=== PATIENT | male | born 1955 | race Two or more races ===

== ENCOUNTER 2019-12-17 16:12 | Emergency (ER) | payer MEDICARE ==
[2019-12-17 16:25] LABS: INTERNATIONAL RATION (INR) 0.93; PROTHROMBIN TIME 12.7 SEC (11.4-15.4)
[2019-12-17 16:26] LABS: PARTIAL THROMBOPLASTIN TIME 28.3 SEC (23.5-35.8)
--- NOTE | 2019-12-17 16:38 | ER Document Report ---
ED General - General Stated Complaint: POSSIBLE STROKE Time Seen by Provider: 12/17/19 16:17 Mode of Arrival: Medic Information source: Emergency Med Personnel Notes: 64-year-old male arrives by EMS with chief complaint of having gone fishing early this morning and upon returning to his home at 1130 his and son noticed he was very drowsy and not acting well and walking with a wide-based gait very drowsy. He went to sleep and upon awakening approximately 1 hour ADULT NEUROLOGIST family noticed he was a phasic without speech and no use of right arm or right leg. EMS advises the patient can shake his head yes or no and he understands their questions. CT scan was done immediately upon the patient's arrival and I received a call from radiologist at approximately 1630 with the advice of getting an MRI because of a left MCA a density. His chest x-ray is very interstitial suspicious for underlying problem with the patient with a persistent nonproductive cough. Because of the coronavirus outbreak at this [facility] that is pandemic to the world we will get a MRI of head as well as a foreman COVID-19 test. We spoke with Patt at the transfer center at [facility] shortly after patient CT scan was done. I spoke with Patt again at [address] Dontae Viera neurologist at [facility] and he advises CTA after or before MRI. We also ordered a COVID-19 test on this patient and I warned the technicians over at our CT room to use respiratory precautions in case this patient does have coronavirus. Dr. Sol advises no TPA until he is gotten a powerplay to him. I spoke with Jelly the patient's at 1705 by telephone [phone] and she advises the patient awoke at 05 100 went to go fishing on his boat and she called him at 1030 and he advised her he did not go fishing because he felt poorly and she advised him to come home. He made his way into the door had trouble getting to the door according to his son by 1130. He last ate some muffin and drink some milk around 3 PM 1500 but by 1530 was having hemiplegia and that is when family called EMS. advises that he has had COPD and also stents in both neck arteries around 5 years ago. He also has a history of squamous cell carcinoma and hypertension. He is quit smoking around 7 years ago and occasionally drinks alcohol. Radiologist called me at 1733 with the findings on CTA of a complete clot occlusion from his left stent carotid to his left MCA with collateral flow looking good. I also got a call from Patt around 173 at [facility] and she advised me to let the flight crew know about this. Because of the large clot TPA will not be given. TRAVEL OUTSIDE OF THE [place] IN LAST 30 DAYS: No - HPI Onset: Just prior to arrival Onset/Duration: Sudden, Persistent Severity: Moderate Pain Level: 3 Associated symptoms: Weakness Exacerbated by: Movement Relieved by: Denies Similar symptoms previously: No Recently seen / treated by doctor: No - Related Data Allergies/Adverse Reactions: No Known Allergies Allergy (Verified 12/17/19 17:09) Past Medical History - Social History Smoking Status: Former Smoker - Stopped Smoking 7 years ago Cigarette use (# per day): No Chew tobacco use (# tins/day): No Smoking Education Provided: No Frequency of alcohol use: Occasional Drug Abuse: None Lives with: Family, Spouse/Significant other Family History: COPD, Other - Bilateral carotid stents in [place] Patient has suicidal ideation: No Patient has homicidal ideation: No Review of Systems - Review of Systems Constitutional: See HPI, Weakness, Recent illness EENT: No symptoms reported Cardiovascular: No symptoms reported Respiratory: See HPI, Cough Gastrointestinal: No symptoms reported Genitourinary: No symptoms reported Male Genitourinary: No symptoms reported Musculoskeletal: No symptoms reported Skin: No symptoms reported Hematologic/Lymphatic: No symptoms reported Neurological/Psychological: See HPI, Weakness, Loss of power, Paralysis, Speech impairment Physical Exam - Vital signs Vitals: Resp Pulse Ox 13 96 12/17/19 16:34 12/17/19 16:34 Interpretation: Hypertensive - General General appearance: Alert, Anxious - HEENT Head: Normocephalic, Atraumatic, Other - Right facial droop Eyes: Normal Pupils: PERRL Mucous membranes: Dry Pharynx: Other - Gag not checked Neck: Normal, Other - Carotid bruits with bilateral - Respiratory Respiratory status: No respiratory distress Chest status: Nontender Breath sounds: Normal Chest palpation: Normal - Cardiovascular Rhythm: Regular Heart sounds: Normal auscultation Murmur: No - Abdominal Inspection: Normal Distension: No distension Bowel sounds: Normal Tenderness: Nontender Organomegaly: No organomegaly - Rectal Prostate: Other - deferred - Genitourinary Scrotum: Other - deferred - Back Back: Normal - Extremities General upper extremity: Other - Right hemiplegia General lower extremity: Other - Right hemiplegia - Neurological Neuro grossly intact: No Cognition: Confused Motor strength normal: LUE, LLE. No: RUE, RLE Additional motor exam normals: Hemiplegia - right side Course - Vital Signs Vital signs: Temp Pulse Resp BP Pulse Ox 97.6 F 99 16 167/91 H 97 12/17/19 16:45 12/17/19 16:35 12/17/19 16:35 12/17/19 16:35 12/17/19 16:35 - Laboratory Result Diagrams: 12/17/19 15:50 12/17/19 15:50 Laboratory results interpreted by me: 12/17/19 12/17/19 12/17/19 15:50 15:50 16:37 WBC 11.1 H RDW 14.5 H Lymph % (Auto) 11.3 L Absolute Neuts (auto) 9.2 H Seg Neutrophils % 83.2 H BUN 22 H Glucose 142 H POC Glucose 121 H Creatine Kinase 181 H Critical Care Note - Critical Care Note Total time excluding time spent on procedures (mins): 60 Comments: Anne LEE from [facility] took off at approximately 1750 with helicopter to [facility]. I had spoken with our radiologist who advises a left carotid to left MCA complete occlusion with also collateral flow to his left MCA. Both myself and nursing staff spoke with Jelly his outside just prior to helicopter liftoff. She was not wearing mask. Discharge - Discharge Clinical Impression: CVA (cerebral vascular accident) Qualifiers: CVA mechanism: occlusion Precerebral and cerebral artery: middle cerebral artery Laterality of affected vessel: left Qualified Code(s): I63.512 - Cerebral infarction due to unspecified occlusion or stenosis of left middle cerebral artery Condition: Stable Disposition: [facility]
[2019-12-17 16:40] LABS: ALBUMIN 4.8 g/dL (3.5-5.0); ALKALINE PHOSPHATASE 57 U/L (38-126); ANION GAP 12 (5-19); ASPARTATE AMINO TRANSFERASE 30 U/L (17-59); BILIRUBIN,DIRECT 0.3 mg/dL (0.0-0.4); BILIRUBIN,TOTAL 0.6 mg/dL (0.2-1.3); BLOOD UREA NITROGEN 22 mg/dL (7-20); CARBON DIOXIDE 26 mmol/L (22-30); CHLORIDE 102 mmol/L (98-107); CREATINE KINASE 181 U/L (55-170); GLUCOSE 142 mg/dL (75-110); POTASSIUM 4.1 mmol/L (3.6-5.0); TOTAL PROTEIN 7.4 g/dL (6.3-8.2)
[2019-12-17 16:41] LABS: ABSOLUTE LYMPHOCYTES (AUTO) 1.3 10^3/uL (0.5-4.7); ABSOLUTE MONOCYTES (AUTO) 0.6 10^3/uL (0.1-1.4); ABSOLUTE NEUT (AUTO) 9.2 10^3/uL (1.7-8.2); BASOPHILS % (AUTO) 0.2 % (0-2); EOSINOPHILS % (AUTO) 0.1 % (0-6); HEMATOCRIT 45.7 % (37.9-51.0); HEMOGLOBIN 15.5 g/dL (13.5-17.0); LYMPHOCYTES % (AUTO) 11.3 % (13-45); MEAN CORPUSCULAR HEMOGLOBIN 31.5 pg (27.0-33.4); MEAN CORPUSCULAR VOLUME 93 fl (80-97); MONOCYTES % (AUTO) 5.2 % (3-13); PLATELET COUNT 208 10^3/uL (150-450); RED BLOOD COUNT 4.93 10^6/uL (4.35-5.55); RED CELL DISTRIBUTION WIDTH 14.5 % (11.5-14.0); SEGMENTED NEUTROPHILS % (AUTO) 83.2 % (42-78); TOTAL CELLS COUNTED % (AUTO) 100 %; WHITE BLOOD COUNT 11.1 10^3/uL (4.0-10.5)
--- NOTE | 2019-12-17 16:41 | RADIOLOGY REPORT (SQ) ---
EXAM DESCRIPTION: CT HEAD WITHOUT IMAGES COMPLETED DATE/TIME: 12/17/2019 4:22 pm REASON FOR STUDY: stroke-like symptoms COMPARISON: None. TECHNIQUE: Axial images acquired through the brain without intravenous contrast. Images reviewed wit h bone, brain and subdural windows. Images stored on PACS. All CT scanners at this facility use dose modulation, iterative reconstruction, and/or weight based d osing when appropriate to reduce radiation dose to as low as reasonably achievable (ALARA). [facility]: Dose Right [facility]: CareDose [facility]: Dose Right [facility]: Teradose 4D [facility]: [employer] RADIATION DOSE: . LIMITATIONS: Mild motion artifact. FINDINGS: VENTRICLES: Normal size and contour. CEREBRUM: Dense left MCA concerning for thrombosis. No hemorrhage. No midline shift. Scattered areas of hypodensity in the white matter, left greater than right. CEREBELLUM: No hemorrhage. No alteration of density identified. EXTRA-AXIAL SPACES: No fluid collections. ORBITS AND GLOBE: No intra- or extraconal masses. Normal contour of globe without masses. CALVARIUM: No fracture. PARANASAL SINUSES: No fluid or mucosal thickening. SOFT TISSUES: No mass or hematoma. OTHER: No other significant finding. IMPRESSION: Dense left MCA concerning for thrombosis. EVIDENCE OF ACUTE STROKE: YES. LEFT MCA COMMENT: These results were communicated to Dr. Zelaya at 1630 hours. Results were confirmed and read back. TECHNICAL DOCUMENTATION: JOB ID: [id number] [place]-72 Quality ID # [id number]: Final reports with documentation of one or more dose reduction techniques (e.g., Au tomated exposure control, adjustment of the mA and/or kV according to patient size, use of iterative reconstruction technique) 2010 [employer]- All Rights Reserved Reading location - IP/workstation name: [email or web address]
--- NOTE | 2019-12-17 16:42 | RADIOLOGY REPORT (SQ) ---
EXAM DESCRIPTION: CHEST SINGLE VIEW IMAGES COMPLETED DATE/TIME: 12/17/2019 4:22 pm REASON FOR STUDY: stroke-like symptoms COMPARISON: None. TECHNIQUE: Single frontal radiographic view of the chest acquired. NUMBER OF VIEWS: One view. LIMITATIONS: None. FINDINGS: LUNGS AND PLEURA: No pneumothorax. Mild interstitial reticulonodular prominence bilateral ly. No consolidation or pleural effusion. MEDIASTINUM AND HILAR STRUCTURES: No contour abnormalities. HEART AND VASCULAR STRUCTURES: Heart normal size. BONES: No acute findings. HARDWARE: None in the chest. OTHER: No other significant finding. IMPRESSION: Mild interstitial reticulonodular prominence bilaterally. No consolidation or pleural effusion. TECHNICAL DOCUMENTATION: JOB ID: [id number] [place]-72 2010 [employer]- All Rights Reserved Reading location - IP/workstation name: [email or web address]
[2019-12-17 16:56] LABS: CREATINE KINASE MB 3.05 ng/mL (<4.55)
[2019-12-17 17:00] LABS: TROPONIN I < 0.012 ng/mL
--- NOTE | 2019-12-17 17:45 | RADIOLOGY REPORT (SQ) ---
EXAM DESCRIPTION: CTA HEAD; CTA NECK IMAGES COMPLETED DATE/TIME: 12/17/2019 5:18 pm REASON FOR STUDY: cva COMPARISON: None. TECHNIQUE: Post IV contrast scanning, thin section axial imaging through the brain and neck to evalu ate the arterial structures. Source and MIP images are saved and reviewed on PACS. Advanced 3D imaging as volume-rendering, MIPs, SSD performed? yes All CT scanners at this facility use dose modulation, iterative reconstruction, and/or weight based d osing when appropriate to reduce radiation dose to as low as reasonably achievable (ALARA). [facility]: Dose Right [facility]: CareDose [facility]: Dose Right [facility]: Teradose 4D [facility]: [employer] CONTRAST TYPE AND DOSE: contrast/concentration: Isovue 350.00 mmol/ml; Total Contrast Delivered: 64. 0 ml; Total Saline Delivered: 75.0 ml RENAL FUNCTION: GFR > 60. LIMITATIONS: None. FINDINGS: There is occlusion of the left ICA beginning at the proximal stent at the carotid bifurcat ion extending through the intracranial ICA with extension into the left MCA. Right internal carotid artery shows moderate stenosis in the proximal aspect above the bifurcation, a pproximately 50% narrowing. [place]: The anterior, right middle, posterior cerebral arteries are all patent. No evidenc e of aneurysm. POSTERIOR CIRCULATION: The vertebral arteries are patent as is the basilar artery. No aneurysm. BRAIN: No gross enhancing lesions as visualized. The superior cerebral hemispheres are not included in the field of view. BONES: Intact as visualized. SINUSES: No fluid or mucosal thickening. OTHER: No other significant finding. IMPRESSION: There is occlusion of the left ICA beginning at the proximal stent at the carotid bifurc ation extending through the intracranial ICA with extension into the left MCA. COMMENT: Results were discussed with Dr. Zelaya at 1735 hours. Results were confirmed and read edson beltran. TECHNICAL DOCUMENTATION: JOB ID: [id number] [place]-72 Quality ID # [id number]: Final reports with documentation of one or more dose reduction techniques (e.g., Au tomated exposure control, adjustment of the mA and/or kV according to patient size, use of iterative reconstruction technique) 2010 [employer]- All Rights Reserved Reading location - IP/workstation name: [email or web address]
--- NOTE | 2019-12-17 17:45 | RADIOLOGY REPORT (SQ) ---
EXAM DESCRIPTION: CTA HEAD; CTA NECK IMAGES COMPLETED DATE/TIME: 12/17/2019 5:18 pm REASON FOR STUDY: cva COMPARISON: None. TECHNIQUE: Post IV contrast scanning, thin section axial imaging through the brain and neck to evalu ate the arterial structures. Source and MIP images are saved and reviewed on PACS. Advanced 3D imaging as volume-rendering, MIPs, SSD performed? yes All CT scanners at this facility use dose modulation, iterative reconstruction, and/or weight based d osing when appropriate to reduce radiation dose to as low as reasonably achievable (ALARA). [facility]: Dose Right [facility]: CareDose [facility]: Dose Right [facility]: Teradose 4D [facility]: [employer] CONTRAST TYPE AND DOSE: contrast/concentration: Isovue 350.00 mmol/ml; Total Contrast Delivered: 64. 0 ml; Total Saline Delivered: 75.0 ml RENAL FUNCTION: GFR > 60. LIMITATIONS: None. FINDINGS: There is occlusion of the left ICA beginning at the proximal stent at the carotid bifurcat ion extending through the intracranial ICA with extension into the left MCA. Right internal carotid artery shows moderate stenosis in the proximal aspect above the bifurcation, a pproximately 50% narrowing. [place]: The anterior, right middle, posterior cerebral arteries are all patent. No evidenc e of aneurysm. POSTERIOR CIRCULATION: The vertebral arteries are patent as is the basilar artery. No aneurysm. BRAIN: No gross enhancing lesions as visualized. The superior cerebral hemispheres are not included in the field of view. BONES: Intact as visualized. SINUSES: No fluid or mucosal thickening. OTHER: No other significant finding. IMPRESSION: There is occlusion of the left ICA beginning at the proximal stent at the carotid bifurc ation extending through the intracranial ICA with extension into the left MCA. COMMENT: Results were discussed with Dr. Zelaya at 1735 hours. Results were confirmed and read edson beltran. TECHNICAL DOCUMENTATION: JOB ID: [id number] [place]-72 Quality ID # [id number]: Final reports with documentation of one or more dose reduction techniques (e.g., Au tomated exposure control, adjustment of the mA and/or kV according to patient size, use of iterative reconstruction technique) 2010 [employer]- All Rights Reserved Reading location - IP/workstation name: [email or web address]
[2019-12-17 18:19] VITALS: BP 157/82
--- NOTE | 2019-12-17 20:15 | EKG REPORT ---
SEVERITY:- NORMAL ECG - SINUS RHYTHM : Confirmed by: Michelle Mustafa MD 17-Dec-2019 20:14:53
== END 2019-12-17 17:55 | disposition short-term general hospital (02) ==
LOC: ER 16:12
DX: I63.512 Cerebral infarction due to unspecified occlusion or stenosis of left middle cerebral artery (principal); G81.91 Hemiplegia, unspecified affecting right dominant side; R41.82 Altered mental status, unspecified; R05 Cough; J44.9 Chronic obstructive pulmonary disease, unspecified; I10 Essential (primary) hypertension; Z87.891 Personal history of nicotine dependence; R53.1 Weakness; F41.9 Anxiety disorder, unspecified
CPT/HCPCS: 36415; 70450; 70496; 70498; 71045; 80053; 82550; 82553; 82962; 84484; 85025; 85610; 85730; 93005; 93010; 99291